=== PATIENT | male | born 1975 | race African-American/Black ===

== ENCOUNTER → 2019-04-22 | Outpatient (CLI) | payer OTHER ==
[~2019-04-22] MED LIST: AMOXICILLIN 8751 TAB PO; COZAAR 25MG25 MG/TAB; HCTZ 25MG TAB25 MG PO; MINIPRESS2 MG; NORCO 325 MG-51 TAB PO; NORVASC2.5 MG PO; PROZAC40 MG PO
[2019-04-22 10:20] LABS: BASO % 0.5 % (0.0-2.0); EOS # 0.1 (0.0-0.7); EOS % 3.3 % (0-4.0); GRAN # 1.5 (1.4-6.5); GRAN % 41.1 % (42.2-75.2); HEMATOCRIT 45.9 % (42.0-52.0); HEMOGLOBIN 15.6 g/dl (13.5-18.0); LYMPH # 1.7 (1.2-3.4); MEAN CELL VOLUME 96 fl (80.0-100.0); MEAN CORPUSCULAR HEMOGLOBIN 33 pg (27.0-31.0); MEAN CORPUSCULAR HGB CONC 34 g/dl (33.0-37.0); MEAN PLATELET VOLUME 10.5 fl (7.4-10.4); MONO # 0.4 (0.1-0.6); MONO % 9.8 % (1.7-9.3); PLATELET COUNT 236 K/mm3 (130-400); RED BLOOD COUNT 4.77 M/mm3 (4.20-5.60); REDCELL DISTRIBUTION WIDTH-CV 13.3 % (11.5-14.5)
[2019-04-22 11:34] LABS: ERYTHROCYTE SEDIMENTATION RATE 5 mm/hr (0-15)
== END ==
LOC: COL.LAB 09:50
PROVIDERS: Orthopaedic Surgery Sports Medicine
DX: M25.562 Pain in left knee (principal); Z96.652 Presence of left artificial knee joint

== ENCOUNTER 2020-05-09 09:53 | Emergency (ER) | payer OTHER ==
[~2020-05-09] VITALS: Ht 177.8 cm; Wt 100.0 kg
[2020-05-09 09:57] VITALS: TEMP 98.1
[2020-05-09 10:47] LABS: BASO % 0.4 % (0.0-2.0); EOS # 0.2 (0.0-0.7); EOS % 4.8 % (0-4.0); GRAN # 3.2 (1.4-6.5); GRAN % 63.2 % (42.2-75.2); HEMATOCRIT 46.1 % (42.0-52.0); HEMOGLOBIN 15.9 g/dl (13.5-18.0); LYMPH # 1.3 (1.2-3.4); LYMPH % 25.4 % (20.0-51.0); MEAN CELL VOLUME 91 fl (80.0-100.0); MEAN CORPUSCULAR HEMOGLOBIN 31 pg (27.0-31.0); MEAN CORPUSCULAR HGB CONC 35 g/dl (33.0-37.0); MEAN PLATELET VOLUME 10.5 fl (7.4-10.4); MONO # 0.3 (0.1-0.6); PLATELET COUNT 271 K/mm3 (130-400); RED BLOOD COUNT 5.09 M/mm3 (4.20-5.60); REDCELL DISTRIBUTION WIDTH-CV 13.4 % (11.5-14.5)
[2020-05-09] MEDS ORDERED: ZOFRAN ODT4 MG PO ×2 (10:49)
[2020-05-09] MEDS ORDERED: NORCO 325 MG-51 TAB PO ×2 (10:49)
[2020-05-09 11:02] LABS: ALANINE AMINOTRANSFERASE 38 U/L (4-49); ALKALINE PHOSPHATASE 64 U/L (50-136); ANION GAP 11 mmol/L (7-16); AST,SGOT 35 U/L (15-37); BILIRUBIN,TOTAL 0.5 mg/dL (0.0-1.0); BLOOD UREA NITROGEN 17 mg/dL (9-20); C-REACTIVE PROTEIN 0.9 mg/dL (0.0-0.9); CALCIUM 9.6 mg/dL (8.4-10.2); CARBON DIOXIDE 23 mmol/L (22-30); CHLORIDE 105 mmol/L (98-107); CREATININE, serum 1.05 (0.66-1.25); GLUCOSE 104 mg/dL (74-106); POTASSIUM 4.1 mmol/L (3.4-5.0); SODIUM 139 mmol/L (137-145)
[2020-05-09 11:12] LABS: TROPONIN-I < 0.012 ng/mL (0.000-0.035)
[2020-05-09 12:32] VITALS: BP 140/78; PULSE 88
== END 2020-05-09 12:35 | disposition home or self-care (01) ==
LOC: COL.ER 09:53
PROVIDERS: Emergency Medicine
DX: J06.9 Acute upper respiratory infection, unspecified (principal); I10 Essential (primary) hypertension; Z20.828 Contact with and (suspected) exposure to other viral communicable diseases; Z88.8 Allergy status to other drugs, medicaments and biological substances
CPT/HCPCS: J1100; J7030

== ENCOUNTER 2022-09-18 00:10 | Emergency (ER) | payer OTHER ==
[~2022-09-18] VITALS: Ht 177.8 cm; Wt 100.0 kg
[~2022-09-18 00:10] MED LIST changes: +PEN-VEE K500 MG PO; +ZOFRAN ODT4 MG PO
[2022-09-18 00:33] VITALS: TEMP 98
[2022-09-18] MEDS ORDERED: AMOXICILLIN 8751 TAB PO (02:18)
[2022-09-18 02:31] VITALS: BP 160/108; PULSE 94
== END 2022-09-18 02:32 | disposition home or self-care (01) ==
LOC: COL.ER 00:10
DX: J01.90 Acute sinusitis, unspecified (principal); F17.290 Nicotine dependence, other tobacco product, uncomplicated; Z20.822 Contact with and (suspected) exposure to COVID-19

== ENCOUNTER 2024-04-03 08:21 | Emergency (ER) | payer OTHER ==
[~2024-04-03] VITALS: Ht 177.8 cm; Wt 102.3 kg
[2024-04-03 08:28] VITALS: BP 173/99; PULSE 97; TEMP 98.6
[2024-04-03] MEDS ORDERED: MEDROL 4MG DOSPA4 MG PO (08:44)
[2024-04-03] MEDS ORDERED: NEURONTIN100 MG/CAP PO (08:44)
== END 2024-04-03 09:00 | disposition home or self-care (01) ==
LOC: COL.ER 08:21
DX: M54.16 Radiculopathy, lumbar region (principal)